=== PATIENT | male | born 1975 | race Caucasian/White ===

== ENCOUNTER 2017-06-28 00:05 | Emergency (ER) | payer OTHER ==
[~2017-06-28] VITALS: Ht 170.2 cm; Wt 90.7 kg
[2017-06-28 00:09] VITALS: BP 119/80
--- NOTE | 2017-06-28 00:24 | NUR ---
PT TAKEN TO BED 3
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
--- NOTE | 2017-06-28 00:33 | NUR ---
Patient being evaluated by physician at bedside.
--- NOTE | 2017-06-28 00:55 | NUR ---
ER PERFOMING DERMOBOND TX AT BEDSIDE
--- NOTE | 2017-06-28 00:56 | NUR ---
X-Ray at bedside.
[2017-06-28 01:09] VITALS: BP 106/71
--- NOTE | 2017-06-28 01:09 | NUR ---
Patient discharged with v/s stable. Written and verbal after care instructions given and explained. Patient verbalized understanding. Ambulatory with steady gait. All questions addressed prior to discharge. Advised to follow up with PMD.
== END 2017-06-28 01:09 | disposition home or self-care (01) ==
LOC: MED 00:05
DX: S61.511A Laceration without foreign body of right wrist, initial encounter (principal); W45.8XXA Other foreign body or object entering through skin, initial encounter; Y93.89 Activity, other specified; Y99.8 Other external cause status; Y92.89 Other specified places as the place of occurrence of the external cause
CPT/HCPCS: 12001; 73130; 99284; Q0092